=== PATIENT | female | born 1970 | race Caucasian/White ===

== ENCOUNTER → 2016-10-25 | Outpatient (CLI) | payer BC ==
--- NOTE | 2016-10-25 14:06 | Diagnostic Imaging Report ---
INDICATION: Lower back pain since August. TECHNIQUE: AP, Lateral and Spot imaging of the lumbar spine CORRELATION STUDY: None FINDINGS: There is some straightening of the normal lumbar lordotic curvature. Mild anterior wedging of L4 vertebral body. Slight Schmorl's node deformity of superior L3 endplate. Mild endplate lipping particularly at the L2 and L4 levels. Moderate disc space narrowing at T12-L1, L1-L2, and L2-L3 levels. Minimal retrolisthesis of L5 on S1. SI joints without effusion or erosion. IMPRESSION: Some straightening and loss of the normal curvature of the lumbar spine. No acute bony abnormality. Mild lumbar spondylosis. Dictated by: Dictated on workstation # [id number]
== END ==
LOC: RAD 08:47
PROVIDERS: ATTEND Chiropractor
DX: M54.5 Low back pain (principal)
CPT/HCPCS: 72100